=== PATIENT | male | born 1985 | race African-American/Black ===

== ENCOUNTER 2017-09-11 20:02 | Emergency (ER) | payer MEDICAID, OTHER ==
[~2017-09-11] VITALS: Ht 175.3 cm; Wt 68.0 kg
[~2017-09-11 20:02] MED LIST: CYCLOBENZAPRINE10 MG ORAL; IBUPROFEN600 MG ORAL; NKM; TYLENOL325 MG ORAL; ZOFRAN ODT4 MG ORAL
[2017-09-11] MEDS ORDERED: NKM (20:19)
[2017-09-11] MEDS ORDERED: Ketorolac 30mg Inj IM ONE (20:30)
[2017-09-11] MEDS ORDERED: ZOFRAN ODT4 MG ORAL (21:31)
[2017-09-11 21:43] VITALS: BP 169/90
[2017-09-11 21:44] VITALS: BP 169/90
--- NOTE | 2017-09-12 23:43 | Emergency Room Report ---
History of Present Illness General Chief Complaint: Nausea Source: Patient Present Illness HPI 32-year-old male presents ED for evaluation. Patient states he used crystal meth just prior to arrival and since he's been having nausea and vomiting. Denies any chest pain or shortness of breath. Denies any abdominal pain. Patient denies any other drug use. No other aggravating relieving factors. Denies any other associated symptoms Allergies: Coded Allergies: No Known Allergies (Unverified , 09/11/17) Patient History Past Medical History: none Past Surgical History: none Pertinent Family History: none Social History: Denies: smoking, alcohol use, drug use Immunizations: UTD Reviewed Nursing Documentation: PMH: Agreed, PSxH: Agreed Nursing Documentation-PMH Past Medical History: No Stated History Review of Systems All Other Systems: negative except mentioned in HPI Physical Exam Vital Signs Date Time Temp Pulse Resp B/P (MAP) Pulse Ox O2 Delivery O2 Flow Rate FiO2 09/11/17 20:12 97.2 74 16 169/90 98 Room Air Sp02 EP Interpretation: reviewed, normal General Appearance: no apparent distress, alert, GCS 15, non-toxic Head: normocephalic, atraumatic Eyes: bilateral eye normal inspection, bilateral eye PERRL ENT: hearing grossly normal, normal pharynx, no angioedema, normal voice Neck: full range of motion, supple/symm/no masses Respiratory: chest non-tender, lungs clear, normal breath sounds, speaking full sentences Cardiovascular #1: regular rate, rhythm, no edema Cardiovascular #2: 2+ carotid (R), 2+ carotid (L), 2+ radial (R), 2+ radial (L) , 2+ dorsalis pedis (R), 2+ dorsalis pedis (L) Gastrointestinal: normal bowel sounds, non tender, soft, non-distended, no guarding, no rebound Rectal: deferred Genitourinary: normal inspection, no CVA tenderness Musculoskeletal: back normal, gait/station normal, normal range of motion, non- tender Neurologic: alert, oriented x3, responsive, motor strength/tone normal, sensory intact, speech normal Psychiatric: judgement/insight normal, memory normal, anxious Reflexes: 3+ bicep (R), 3+ bicep (L), 3+ tricep (R), 3+ tricep (L), 3+ knee (R) , 3+ knee (L) Skin: normal color, no rash, warm/dry, well hydrated Lymphatic: no adenopathy Medical Decision Making Diagnostic Impression: Primary Impression: Substance abuse ER Course Hospital Course 32-year-old male presents ED with nausea and vomiting after using crystal meth Clinical course Patient placed on stretcher. After initial history and physical I ordered Zofran On reassessment patient is feeling better. Patient appears anxious but is stable for discharge Diagnosis - substance abuse stable and discharged to home with Rx Zofran. Followup with PMD. Return to ED if symptoms recur or worsen Last Vital Signs Date Time Temp Pulse Resp B/P (MAP) Pulse Ox O2 Delivery O2 Flow Rate FiO2 09/11/17 21:44 97.2 16 169/90 98 Room Air 09/11/17 20:12 74 Status: improved Disposition: HOME, SELF-CARE Condition: Stable Scripts Ondansetron Odt* (ZOFRAN ODT*) 4 Mg Tab.rapdis 4 MG ORAL Q6H Y for Nausea & Vomiting, #30 TAB 0 Refills Prov: VINAY MARINELLI M.D. 09/11/17 Referrals: [facility],REFERRING (PCP) Patient Instructions: Stimulant Use Disorder-Methamphetamines VINAY MARINELLI M.D. Sep 12, 2017 23:43
== END 2017-09-11 21:30 | disposition home or self-care (01) ==
LOC: EMR 20:40 → MERGE 20:40 → EMR 21:30
DX: F15.10 Other stimulant abuse, uncomplicated (principal)
CPT/HCPCS: 96372; 99284; J1885; J2405

== ENCOUNTER 2019-04-25 05:37 | Emergency (ER) | payer OTHER ==
[~2019-04-25] VITALS: Ht 175.3 cm; Wt 72.6 kg
[2019-04-25 06:10] VITALS: BP 162/61
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
[2019-04-25] MEDS ORDERED: Bacitracin Oint UD TOPIC ONE (06:15)
--- NOTE | 2019-04-25 07:09 | NUR ---
HAND-OFF: Report given to RN [facility].
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
[2019-04-25] MEDS ORDERED: BACITRACIN15 GM TOPIC (07:55)
[2019-04-25] MEDS ORDERED: TRAMADOL HCL50 MG ORAL (07:55)
[2019-04-25] MEDS ORDERED: TYLENOL325 MG ORAL (07:55)
[2019-04-25 08:05] VITALS: BP 151/64
--- NOTE | 2019-04-25 08:05 | NUR ---
ER DISCHARGE NOTE: Patient is cleared to be discharged per ERMD, pt is aox4, on room air, with stable vital signs. pt was given dc and prescription instructions, pt was able to verbalize understanding, pt id band removed. pt is able to ambulate with steady gait. pt took all belongings.
--- NOTE | 2019-04-25 12:57 | Diagnostic Imaging Report ---
Indication: Pain Knee pain/trauma 3 views of the right knee were obtained. Findings: No acute fracture, malalignment, or joint effusion are identified. There is soft tissue swelling in the anterior part of the knee. Impression: Negative for acute fracture. Soft tissue swelling
== END 2019-04-25 08:05 | disposition home or self-care (01) ==
LOC: EMR 07:54
DX: S83.91XD Sprain of unspecified site of right knee, subsequent encounter (principal); S49.91XD Unspecified injury of right shoulder and upper arm, subsequent encounter; S69.91XD Unspecified injury of right wrist, hand and finger(s), subsequent encounter; S89.92XD Unspecified injury of left lower leg, subsequent encounter; V81.6 Occupant of railway train or railway vehicle injured by fall from railway train or railway vehicle
CPT/HCPCS: 99283

== ENCOUNTER 2020-04-08 21:17 | Emergency (ER) | payer OTHER ==
[~2020-04-08] VITALS: Ht 175.3 cm; Wt 72.6 kg
[~2020-04-08 21:17] MED LIST changes: +BACITRACIN15 GM TOPIC; +TRAMADOL HCL50 MG ORAL
[2020-04-08 21:40] VITALS: BP 166/99
[2020-04-08 22:00] LABS: BASOPHILS % (AUTO) 1.7 % (0.0-2.0); EOSINOPHILS % (AUTO) 0.6 % (0.0-3.0); HEMATOCRIT 46.2 % (42.0-52.0); LYMPHOCYTES % (AUTO) 27.1 % (20.0-45.0); MEAN CORPUSCULAR VOLUME 92 FL (80-99); MONOCYTES % (AUTO) 4.4 % (1.0-10.0); NEUTROPHILS % (AUTO) 66.2 % (45.0-75.0); PLATELET COUNT 165 K/UL (150-450); RED BLOOD COUNT 5.03 M/UL (4.70-6.10); WHITE BLOOD COUNT 9.5 K/UL (4.8-10.8)
[2020-04-08] MEDS ORDERED: Ketorolac 30mg Inj IV ONE (22:00)
[2020-04-08 22:29] LABS: ANION GAP 9 mmol/L (5-15); BLOOD UREA NITROGEN 16 mg/dL (7-18); CALCIUM 8.9 MG/DL (8.5-10.1); CARBON DIOXIDE 29 MMOL/L (21-32); CHLORIDE 101 MMOL/L (98-107); CREATININE 1.3 MG/DL (0.55-1.30); POTASSIUM 3.5 MMOL/L (3.5-5.1); SODIUM 139 MMOL/L (136-145)
[2020-04-08 22:33] LABS: ALANINE AMINOTRANSFERASE 44 U/L (12-78); ALBUMIN 4.4 G/DL (3.4-5.0); ALBUMIN/GLOBULIN RATIO 1.3 (1.0-2.7); ALKALINE PHOSPHATASE 60 U/L (46-116); ASPARTATE AMINO TRANSFERASE 31 U/L (15-37); BILIRUBIN,TOTAL 0.5 MG/DL (0.2-1.0)
--- NOTE | 2020-04-08 22:49 | Emergency Room Report ---
History of Present Illness General Chief Complaint: Chest Pain Source: Patient Present Illness HPI Patient presents with complaints of left-sided mid chest pain Reports the pain started 2 hours prior to arrival He reports that he was at rest when the pain started Reports that earlier this morning he had similar episode he did not go to work Earlier he was at the [employer] the discomfort and was brought to the emergency room denies any pleurisy denies any vomiting or diarrhea denies any fevers or chills Allergies: Coded Allergies: No Known Allergies (Unverified , 11/29/15) COVID-19 Screening Contact w/high risk pt: No Recent Travel to affected area: No Experienced COVID-19 symptoms?: No COVID-19 Testing performed COLLEGE PROFESSOR: No Patient History Past Medical History: see triage record Reviewed Nursing Documentation: PMH: Agreed; PSxH: Agreed Nursing Documentation-PMH Past Medical History: No Stated History Review of Systems All Other Systems: negative except mentioned in HPI Physical Exam Vital Signs Date Time Temp Pulse Resp B/P (MAP) Pulse Ox O2 Delivery O2 Flow Rate FiO2 04/08/20 21:15 98.4 102 166/99 (121) 98 Room Air 04/08/20 21:40 18 Sp02 EP Interpretation: reviewed, normal General Appearance: well appearing, no apparent distress Head: normocephalic, atraumatic Eyes: bilateral eye PERRL, bilateral eye EOMI ENT: hearing grossly normal, normal pharynx, TMs + canals normal, uvula midline Neck: full range of motion, supple, no meningismus, no bony tend Respiratory: lungs clear, normal breath sounds, no rhonchi, no respiratory distress, no retraction, no accessory muscle use Cardiovascular #1: normal peripheral pulses, regular rate, rhythm, no edema, no gallop, no JVD, no murmur Gastrointestinal: normal bowel sounds, non tender, soft, no mass, no organomegaly, non-distended, no guarding, no hernia, no pulsatile mass, no rebound Genitourinary: no CVA tenderness Musculoskeletal: normal inspection Neurologic: motor strength/tone normal, lobster catcher III-XII nml as tested, oriented x3 , sensory intact, responsive Psychiatric: mood/affect normal Lymphatic: normal inspection, no adenopathy Medical Decision Making Diagnostic Impression: Primary Impression: Chest pain ER Course Patient is a fairly complex patient with multiple differential to consideration including but not limited to cardiac cardiopulmonary and vascular emergencies Patient's blood work is at baseline levels chest x-ray and EKG are normal Patient has been resting comfortably throughout his stay Drug screen does reveal positive findings Patient has low cardiac score and at this time is stable for close outpatient follow-up Labs Test 04/08/20 21:35 White Blood Count 9.5 K/UL (4.8-10.8) Red Blood Count 5.03 M/UL (4.70-6.10) Hemoglobin 15.0 G/DL (14.2-18.0) Hematocrit 46.2 % (42.0-52.0) Mean Corpuscular Volume 92 FL (80-99) Mean Corpuscular Hemoglobin 29.8 PG (27.0-31.0) Mean Corpuscular Hemoglobin Concent 32.5 G/DL (32.0-36.0) Red Cell Distribution Width 12.0 % (11.6-14.8) Platelet Count 165 K/UL (150-450) Mean Platelet Volume 9.6 FL (6.5-10.1) Neutrophils (%) (Auto) 66.2 % (45.0-75.0) Lymphocytes (%) (Auto) 27.1 % (20.0-45.0) Monocytes (%) (Auto) 4.4 % (1.0-10.0) Eosinophils (%) (Auto) 0.6 % (0.0-3.0) Basophils (%) (Auto) 1.7 % (0.0-2.0) Sodium Level 139 MMOL/L (136-145) Potassium Level 3.5 MMOL/L (3.5-5.1) Chloride Level 101 MMOL/L (98-107) Carbon Dioxide Level 29 MMOL/L (21-32) Anion Gap 9 mmol/L (5-15) Blood Urea Nitrogen 16 mg/dL (7-18) Creatinine 1.3 MG/DL (0.55-1.30) Estimat Glomerular Filtration Rate > 60 mL/min (>60) Glucose Level 96 MG/DL (74-106) Calcium Level 8.9 MG/DL (8.5-10.1) Total Bilirubin 0.5 MG/DL (0.2-1.0) Aspartate Amino Transf (AST/SGOT) 31 U/L (15-37) Alanine Aminotransferase (ALT/SGPT) 44 U/L (12-78) Alkaline Phosphatase 60 U/L (46-116) Troponin I 0.000 ng/mL (0.000-0.056) Total Protein 7.9 G/DL (6.4-8.2) Albumin 4.4 G/DL (3.4-5.0) Globulin 3.5 g/dL Albumin/Globulin Ratio 1.3 (1.0-2.7) Urine Opiates Screen Negative (NEGATIVE) Urine Barbiturates Screen Negative (NEGATIVE) Phencyclidine (PCP) Screen Negative (NEGATIVE) Urine Amphetamines Screen Positive (NEGATIVE) Urine Benzodiazepines Screen Negative (NEGATIVE) Urine Cocaine Screen Negative (NEGATIVE) Urine Marijuana (THC) Screen Positive (NEGATIVE) EKG Diagnostic Results Rate: normal Rhythm: NSR ST Segments: no acute changes Rhythm Strip Diag. Results EP Interpretation: yes Rate: 88 Rhythm: NSR, no PVC's, no ectopy Chest X-Ray Diagnostic Results Chest X-Ray Diagnostic Results : Chest X-Ray Ordered: Yes # of Views/Limited/Complete: 1 View Indication: Chest Pain EP Interpretation: Yes Interpretation: no consolidation, no effusion, no pneumothorax Impression: No acute disease Electronically Signed by: Ravin Cuello DO Last Vital Signs Date Time Temp Pulse Resp B/P (MAP) Pulse Ox O2 Delivery O2 Flow Rate FiO2 04/08/20 21:40 98.4 18 166/99 98 Room Air 04/08/20 21:40 102 Status: improved Disposition: HOME, SELF-CARE Condition: Improved Referrals: [facility] (PCP) Additional Instructions: Patient is provided with the discharge instructions notified to follow up with primary doctor in the next 2-3 days otherwise return to the er with any worsening symptoms. Please note that this report is being documented using [employer] technology. This can lead to erroneous entry secondary to incorrect interpretation by the dictating instrument. Ravin Cuello DO Apr 08, 2020 22:49
[2020-04-08 23:15] VITALS: BP 135/79
--- NOTE | 2020-04-09 12:54 | Diagnostic Imaging Report ---
Indication: Chest pain Technique: XRAY Chest 1v Comparison: None Findings: Heart size and mediastinal contours are within normal limits for AP technique. There is no focal airspace consolidation, pneumothorax or pleural effusion. Osseous structures demonstrate no acute abnormality. Impression: No radiographic evidence of acute cardiopulmonary disease.
== END 2020-04-08 23:15 | disposition home or self-care (01) ==
LOC: EDBD 21:17 → EMR 22:04
DX: R07.9 Chest pain, unspecified (principal)
CPT/HCPCS: 36415; 71045; 80053; 80307; 84484; 85025; 93005; 96374; J1885; Z7502; 99284

== ENCOUNTER 2020-04-09 00:48 | Emergency (ER) | payer OTHER ==
[~2020-04-09] VITALS: Ht 167.6 cm; Wt 70.3 kg
[2020-04-09 01:13] VITALS: BP 143/66
--- NOTE | 2020-04-09 01:34 | Emergency Room Report ---
History of Present Illness General Chief Complaint: Behavioral Complaint Source: Patient Present Illness HPI Patient was recently in the hospital complaint of chest pain had been evaluated and discharged home patient now presents that he had not mentioned that he had done methamphetamines And is at this time having difficult time going to sleep Patient reports that he does not feel well he reports that his chest pain has resolved Denies any headache denies any vomiting or diarrhea And reports that he has difficulty falling asleep at this time Allergies: Coded Allergies: No Known Allergies (Unverified , 11/29/15) COVID-19 Screening Contact w/high risk pt: No Recent Travel to affected area: No Experienced COVID-19 symptoms?: No COVID-19 Testing performed PATTERNMAKER GRADER: No Patient History Past Medical History: see triage record Reviewed Nursing Documentation: PMH: Agreed; PSxH: Agreed Nursing Documentation-PMH Past Medical History: No Stated History Review of Systems All Other Systems: negative except mentioned in HPI Physical Exam Vital Signs Date Time Temp Pulse Resp B/P (MAP) Pulse Ox O2 Delivery O2 Flow Rate FiO2 04/09/20 00:56 98.8 97 20 143/66 (91) 99 Room Air Sp02 EP Interpretation: reviewed, normal General Appearance: well appearing, no apparent distress Head: normocephalic, atraumatic Eyes: bilateral eye PERRL, bilateral eye EOMI ENT: hearing grossly normal, normal pharynx, TMs + canals normal, uvula midline Neck: full range of motion, supple, no meningismus, no bony tend Respiratory: lungs clear, normal breath sounds, no rhonchi, no respiratory distress, no retraction, no accessory muscle use Cardiovascular #1: normal peripheral pulses, regular rate, rhythm, no edema, no gallop, no JVD, no murmur Gastrointestinal: normal bowel sounds, non tender, soft, no mass, no organomegaly, non-distended, no guarding, no hernia, no pulsatile mass, no rebound Genitourinary: no CVA tenderness Musculoskeletal: normal inspection Neurologic: motor strength/tone normal, mission coordinator III-XII nml as tested, oriented x3 , sensory intact, responsive Psychiatric: mood/affect normal Skin: no rash Lymphatic: normal inspection, no adenopathy Medical Decision Making Diagnostic Impression: Primary Impression: Substance abuse ER Course Given the patient's history and presentation multiple differentials and consideration Patient had recent presentation and was evaluated by myself Patient had fairly extensive blood work just recently Patient is medically stable He is discussed regarding homicidal or suicidal ideations he denies any of that patient reports that he smoked Methamphetamine significantly more than he usually does patient also reports that he has had multiple presentations to emergency rooms Previous psychiatric evaluations however reports that all of his symptoms are correlated with his methamphetamine use patient is allowed to rest Contact is made with family And patient reports that family will be presenting to pick him up After further improvement and rest patient has appropriate disposition for close outpatient follow-up Last Vital Signs Date Time Temp Pulse Resp B/P (MAP) Pulse Ox O2 Delivery O2 Flow Rate FiO2 04/09/20 01:13 97 20 Room Air 04/09/20 01:13 98.8 143/66 99 Status: improved Disposition: HOME, SELF-CARE Condition: Improved Referrals: [facility] (PCP) Additional Instructions: Patient is provided with the discharge instructions notified to follow up with primary doctor in the next 2-3 days otherwise return to the er with any worsening symptoms. Please note that this report is being documented using [email or web address] technology. This can lead to erroneous entry secondary to incorrect interpretation by the dictating instrument. Ravin Cuello DO Apr 09, 2020 01:34
[2020-04-09] MEDS ORDERED: LORazepam 1mg tab ORAL ONE (03:45)
[2020-04-09 05:35] VITALS: BP 143/66
== END 2020-04-09 05:35 | disposition home or self-care (01) ==
LOC: EMR 01:08
DX: F19.10 Other psychoactive substance abuse, uncomplicated (principal)
CPT/HCPCS: 99282

== ENCOUNTER 2020-05-29 00:27 | Emergency (ER) | payer OTHER ==
[~2020-05-29] VITALS: Ht 175.3 cm; Wt 72.6 kg
[2020-05-29 00:42] VITALS: BP 161/84
--- NOTE | 2020-05-29 00:42 | NUR ---
ED Nurse Note: pt ambulated into ed from home [place] SI for last week. Pt states he is hearing voices in his head that are telling him to kill himself. Pt states SI plan is to kill himself with a gun. Pt denies having access to a gun at home but states that he can obtain one at any time. Pt aao x 4, ambulates with steady gait. VSS no ss of distress noted. Pt placed in gown and belongings placed in LOCKER #2. All safety precautions initiated. ERMD at bedside. Awaiting further orders.
--- NOTE | 2020-05-29 00:51 | Emergency Room Report ---
History of Present Illness General Chief Complaint: Behavioral Complaint Source: Patient Present Illness HPI Disclaimer: Please note that this report is being documented using [employer] technology. This can lead to erroneous entry secondary to incorrect interpretation by the dictating instrument. HPI: 34-year-old male history of substance abuse presents for evaluation of paranoid thoughts. Patient states he recently was discharged from [facility]. He originally went there complaining of paranoid thoughts after using methamphetamines. He states the voices are telling him to harm himself. He has not attempted self-harm and is not harmed anyone else. He denies homicidal ideation. Initially, he stated he did not know how he would harm himself. He later stated he wants to grab a gun and go shoot himself. He does not have a firearm. Last use methamphetamine yesterday. Denies other substance use. States he takes Seroquel and has been compliant with medication. Does not regularly see a psychiatrist. PMH: Substance abuse PSH: None reported Allergies: None reported Social Hx: Substance abuse Allergies: Coded Allergies: No Known Allergies (Unverified , 11/29/15) COVID-19 Screening Contact w/high risk pt: No Recent Travel to affected area: No Experienced COVID-19 symptoms?: No COVID-19 Testing performed [employer]: No Nursing Documentation-PMH History Of Psychiatric Problem: Yes - bipolar, schizophrenia, depression Review of Systems All Other Systems: negative except mentioned in HPI Physical Exam Vital Signs Date Time Temp Pulse Resp B/P (MAP) Pulse Ox O2 Delivery O2 Flow Rate FiO2 05/29/20 00:32 98.2 85 16 161/84 (109) 98 Room Air General: Awake and alert, no acute distress HEENT: NC/AT. EOMI. Cardiovascular: RRR. S1 and S2 normal. No murmur appreciated Resp: Normal work of breathing. No cough, wheezing or crackles appreciated Abdomen: Abdomen is soft, nondistended. Nontender Skin: Intact. No abrasions, laceration or rash over the exposed skin MSK: Normal tone and bulk. Moving all extremities. No obvious deformity. Neuro: Awake and alert. Mentating appropriately. Does not appear to be responding to internal stimuli. Thoughts are coherent. Reports SI. Denies HI. Medical Decision Making Diagnostic Impression: Primary Impression: Amphetamine abuse Additional Impression: Suicidal ideations ER Course 34-year-old male presents for evaluation of suicidal ideation. He has not attempted to harm himself and states he recently used methamphetamines. Appears he was recently discharged from [facility] presumably for similar complaints. Patient admits to recent methamphetamine use and I suspect that his substance abuse is a predominant factor in his paranoid thoughts at present. He is mentating appropriately and requesting to speak with a psychiatrist. Will obtain clearance labs and contact nearby psychiatric facilities for voluntary placement. 0330: Labs returned largely within normal limits. Potassium low at 3.0 and repleted. Toxicology positive for marijuana, benzodiazepines and amphetamines. Patient is medically cleared for psychiatric evaluation. We will try to arrange placement. Laboratory Tests Test 05/29/20 00:54 05/29/20 01:49 White Blood Count 7.1 K/UL (4.8-10.8) Red Blood Count 4.80 M/UL (4.70-6.10) Hemoglobin 14.3 G/DL (14.2-18.0) Hematocrit 41.5 % (42.0-52.0) L Mean Corpuscular Volume 87 FL (80-99) Mean Corpuscular Hemoglobin 29.9 PG (27.0-31.0) Mean Corpuscular Hemoglobin Concent 34.6 G/DL (32.0-36.0) Red Cell Distribution Width 11.3 % (11.6-14.8) L Platelet Count 170 K/UL (150-450) Mean Platelet Volume 9.0 FL (6.5-10.1) Neutrophils (%) (Auto) 55.9 % (45.0-75.0) Lymphocytes (%) (Auto) 33.9 % (20.0-45.0) Monocytes (%) (Auto) 6.6 % (1.0-10.0) Eosinophils (%) (Auto) 2.2 % (0.0-3.0) Basophils (%) (Auto) 1.4 % (0.0-2.0) Sodium Level 139 MMOL/L (136-145) Potassium Level 3.0 MMOL/L (3.5-5.1) L Chloride Level 102 MMOL/L (98-107) Carbon Dioxide Level 30 MMOL/L (21-32) Anion Gap 7 mmol/L (5-15) Blood Urea Nitrogen 18 mg/dL (7-18) Creatinine 1.2 MG/DL (0.55-1.30) Estimated Glomerular Filtration Rate > 60 mL/min (>60) Glucose Level 91 MG/DL (74-106) Calcium Level 9.1 MG/DL (8.5-10.1) Total Bilirubin 1.4 MG/DL (0.2-1.0) H Direct Bilirubin 0.4 MG/DL (0.0-0.3) H Aspartate Amino Transferase (AST) 35 U/L (15-37) Alanine Aminotransferase (ALT) 38 U/L (12-78) Alkaline Phosphatase 73 U/L (46-116) Total Protein 7.6 G/DL (6.4-8.2) Albumin 4.3 G/DL (3.4-5.0) Globulin 3.3 g/dL Albumin/Globulin Ratio 1.3 (1.0-2.7) Salicylates Level < 0.2 ug/mL (2.8-20) L Acetaminophen Level < 2 MCG/ML (10-30) L Serum Alcohol < 3 mg/dL Urine Color Yellow Urine Appearance Clear Urine pH 7 (4.5-8.0) Urine Specific [place] 1.010 (1.005-1.035) Urine Protein 1+ (NEGATIVE) H Urine Glucose (UA) Negative (NEGATIVE) Urine Ketones 2+ (NEGATIVE) H Urine Blood 2+ (NEGATIVE) H Urine Nitrite Negative (NEGATIVE) Urine Bilirubin Negative (NEGATIVE) Urine Urobilinogen Normal MG/DL (0.0-1.0) Urine Leukocyte Esterase 1+ (NEGATIVE) H Urine RBC 0-2 /HPF (0 - 0) H Urine WBC 0-2 /HPF (0 - 0) Urine Squamous Epithelial Cells None /LPF (NONE/OCC) Urine Bacteria Few /HPF (NONE) Urine Opiates Screen Negative (NEGATIVE) Urine Barbiturates Screen Negative (NEGATIVE) Phencyclidine (PCP) Screen Negative (NEGATIVE) Urine Amphetamines Screen Positive (NEGATIVE) H Urine Benzodiazepines Screen Positive (NEGATIVE) H Urine Cocaine Screen Negative (NEGATIVE) Urine Marijuana (THC) Screen Positive (NEGATIVE) H Last Vital Signs Date Time Temp Pulse Resp B/P (MAP) Pulse Ox O2 Delivery O2 Flow Rate FiO2 05/29/20 00:32 98.2 85 16 161/84 (109) 98 Room Air Disposition: SHORT-TERM HOSP Condition: Stable Referrals: [facility],REFERR[facility] (PCP) Cuate Saldana MD May 29, 2020 00:51
--- NOTE | 2020-05-29 00:55 | NUR ---
ED Nurse Note: IV line initiated, blood drawn and sent to lab. Pt states he is unable to provide UA at this time but will be able to provide UA soon. ERMD aware.
[2020-05-29 01:24] LABS: BASOPHILS % (AUTO) 1.4 % (0.0-2.0); EOSINOPHILS % (AUTO) 2.2 % (0.0-3.0); HEMATOCRIT 41.5 % (42.0-52.0); HEMOGLOBIN 14.3 G/DL (14.2-18.0); LYMPHOCYTES % (AUTO) 33.9 % (20.0-45.0); MEAN CORPUSCULAR VOLUME 87 FL (80-99); MONOCYTES % (AUTO) 6.6 % (1.0-10.0); NEUTROPHILS % (AUTO) 55.9 % (45.0-75.0); PLATELET COUNT 170 K/UL (150-450); RED CELL DISTRIBUTION WIDTH 11.3 % (11.6-14.8); WHITE BLOOD COUNT 7.1 K/UL (4.8-10.8)
[2020-05-29 01:29] LABS: ANION GAP 7 mmol/L (5-15); BLOOD UREA NITROGEN 18 mg/dL (7-18); CALCIUM 9.1 MG/DL (8.5-10.1); CARBON DIOXIDE 30 MMOL/L (21-32); CHLORIDE 102 MMOL/L (98-107); CREATININE 1.2 MG/DL (0.55-1.30); SODIUM 139 MMOL/L (136-145)
[2020-05-29 01:41] LABS: ALANINE AMINOTRANSFERASE 38 U/L (12-78); ALBUMIN 4.3 G/DL (3.4-5.0); ALBUMIN/GLOBULIN RATIO 1.3 (1.0-2.7); ALKALINE PHOSPHATASE 73 U/L (46-116); ASPARTATE AMINO TRANSFERASE 35 U/L (15-37); BILIRUBIN,TOTAL 1.4 MG/DL (0.2-1.0)
[2020-05-29 01:44] LABS: BILIRUBIN,DIRECT 0.4 MG/DL (0.0-0.3)
--- NOTE | 2020-05-29 01:46 | NUR ---
ED Nurse Note: all medications administered, pt tolerated well no ss of distress noted. Pt ambulated to restroom to provide UA.
--- NOTE | 2020-05-29 01:51 | NUR ---
ED Nurse Note: UA sent to lab
[2020-05-29 02:21] LABS: APPEARANCE,URINE CLEAR; BILIRUBIN, URINE NEGATIVE (NEGATIVE); GLUCOSE, URINE (UA) NEGATIVE (NEGATIVE); KETONES,URINE 2+ (NEGATIVE); LEUKOCYTE ESTERASE ,URINE 1+ (NEGATIVE); NITRITE,URINE NEGATIVE (NEGATIVE); PH,URINE 7 (4.5-8.0); PROTEIN,URINE 1+ (NEGATIVE); UROBILINOGEN,URINE NORMAL MG/DL (0.0-1.0)
[2020-05-29 02:25] LABS: COLOR,URINE YELLOW
[2020-05-29 02:32] VITALS: BP 139/79
--- NOTE | 2020-05-29 02:32 | NUR ---
ED Nurse Note: pt sleeping in bed, VSS no ss of distress noted. will continue to monitor.
--- NOTE | 2020-05-29 03:51 | NUR ---
Face sheet, labs, dictation faxed to [employer] after speaking with Marquita at [employer].
[2020-05-29 04:32] VITALS: BP 139/80
--- NOTE | 2020-05-29 04:32 | NUR ---
ED Nurse Note: pt sleeping in bed, VSS no ss of distress noted. will continue to monitor.
[2020-05-29 06:32] VITALS: BP 125/84
--- NOTE | 2020-05-29 06:32 | NUR ---
ED Nurse Note: pt sleeping in bed, vss no ss of distress noted. will continue to monitor.
--- NOTE | 2020-05-29 07:00 | NUR ---
ED Nurse Note: patient resting comfortably in bed, patient is alert awake x4 breathing unlabored and even, speaking in full sentences, explained to the patient about being transferred to [facility], patient agreed.
[2020-05-29 07:54] LABS: ANION GAP 8 mmol/L (5-15); BLOOD UREA NITROGEN 19 mg/dL (7-18); CALCIUM 9.4 MG/DL (8.5-10.1); CARBON DIOXIDE 28 MMOL/L (21-32); CHLORIDE 102 MMOL/L (98-107); CREATININE 1.2 MG/DL (0.55-1.30); POTASSIUM 3.4 MMOL/L (3.5-5.1); SODIUM 138 MMOL/L (136-145)
[2020-05-29 08:06] VITALS: BP 129/73
--- NOTE | 2020-05-29 08:13 | NUR ---
ED Nurse Note: report given to Lyla at [facility], endorsed all plan of care to Lyla LEE. patient vitals stable. provided with breakfast and water.
--- NOTE | 2020-05-29 10:38 | NUR ---
ED Nurse Note: patient being transferred to [facility] with [facility]. patient's belongings handed to the ambulance personnel. patient is alert awake x4 breathing unlabored even, speaking in full sentences, in no acute distress.
[2020-05-29 10:41] VITALS: BP 129/73
== END 2020-05-29 10:40 ==
LOC: EMR 00:42
DX: F15.10 Other stimulant abuse, uncomplicated (principal); R45.851 Suicidal ideations; F31.9 Bipolar disorder, unspecified; F20.9 Schizophrenia, unspecified; F32.9 Major depressive disorder, single episode, unspecified
CPT/HCPCS: 36415; 80048; 80053; 80307; 81003; 82248; 85025; G0480; G0481; Z7502; 99284; J8499